=== PATIENT | male | born 1965 | race African-American/Black ===

== ENCOUNTER 2019-08-26 16:02 | Emergency (ER) | payer MEDICAID, MEDICARE ==
[~2019-08-26] VITALS: Ht 180.3 cm; Wt 67.7 kg
[~2019-08-26 16:02] MED LIST: GABA300C10 PO; HYDR-3245 PO; HYDR1TAB13 PO; METH750T2 PO; OXYC-302 PO; ZOLP5TAB6 PO; [UNRECOGNIZED DRUG - REMARK]
[2019-08-26 16:06] VITALS: BP 126/90
[2019-08-26] MEDS ORDERED: ACETAMINOPHEN 325 MG TABLET ONE (16:27)
[2019-08-26] MEDS ORDERED: ACETAMINOPHEN 325 MG TABLET PO ONE (16:30)
== END 2019-08-26 16:44 | disposition home or self-care (01) ==
LOC: ED 16:15
DX: K08.89 Other specified disorders of teeth and supporting structures (principal); F17.200 Nicotine dependence, unspecified, uncomplicated
CPT/HCPCS: 99283